=== PATIENT | female | born 1940 | race Caucasian/White ===

== ENCOUNTER → 2016-07-10 | Outpatient (CLI) | payer OTHER | LOC: BMCIMAGING 13:23 | PROVIDERS: ATTEND Family Medicine | DX: S92.515D Nondisplaced fracture of proximal phalanx of left lesser toe(s), subsequent encounter for fracture with routine healing (principal) ==

== ENCOUNTER 2017-01-17 08:07 | Day surgery (SDC) | payer OTHER ==
[2017-01-17] MEDS ORDERED: LR 1,000 ML IV ONE (08:25)
[2017-01-17] MEDS ORDERED: BUPIVACAINE 0.5% 30 ML SDV ONE (08:38)
--- NOTE | 2017-01-17 08:56 | PDANEPAE ---
ANE History of Present Illness 76 yo for Jan MERCHANT ANE Past Medical History - Cardiovascular History Hx Hypertension: No Hx Arrhythmias: No Hx Chest Pain: No Hx Coronary Artery / Peripheral Vascular Disease: No Hx CHF / Valvular Disease: No Hx Palpitations: No - Pulmonary History Hx Asthma/Reactive Airway Disease: Yes Hx Recent Upper Respiratory Infection: No Hx Oxygen in Use at Home: No Hx Sleep Apnea: No Sleep Apnea Screening Result - Last Documented: Negative Pulmonary History Comment: astma after bronchitis - Neurologic History Hx Cerebrovascular Accident: No Hx Seizures: No Hx Dementia: No - Endocrine History Hx Diabetes: No - Renal History Hx Renal Disorders: Yes Renal History Comment: kidney infection - Liver History Hx Hepatic Disorders: Yes - Neurological & Psychiatric Hx Hx Neurological and Psychiatric Disorders: No - Cancer History Hx Cancer: Yes Cancer History Comment: basal cell on face - Congenital Disorder History Hx Congenital Disorders: No - GI History Hx Gastrointestinal Disorders: Yes Gastrointestinal History Comment: reflux - Other Health History Other Health History: none - Chronic Pain History Chronic Pain: No (lower back and hips) - Surgical History Prior Surgeries: knee surgery x 3. ovarian cystectomy on right. ANE Review of Systems Review of Systems: - Exercise capacity METS (RN): 5 METS ANE Patient History - Allergies Allergies/Adverse Reactions: azithromycin Allergy (Verified 01/10/17 11:42) cephalexin monohydrate [From Keflex] Allergy (Verified 08/26/11 01:17) - Home Medications Home medications: home medication list seen and reviewed Home Medications: TESTOSTERONE [ANDROGEL 2.5 gm] 08/26/11 [Last Taken 01/17/17 07:30] Estrogens, Conjugated 01/10/17 [Last Taken 01/17/17 07:30] Progesterone 01/10/17 [Last Taken 01/02/17] - NPO status NPO Status: no food or drink >8 hours NPO Since - Liquids (Date): 01/16/17 NPO Since - Liquids (Time): 23:59 NPO Since - Solids (Date): 01/16/17 NPO Since - Solids (Time): 22:00 - Anes Hx Anes Hx: no prior problems - Smoking Hx Smoking Status: Never smoked - Family Anes Hx Family Hx Anesthesia Complications: none ANE Labs/Vital Signs - Vital Signs Blood Pressure: 136/72 Heart Rate: 63 Respiratory Rate: 16 O2 Sat (%): 98 Height: 5 ft 4.5 in Weight: 61.235 kg ANE Physical Exam - Airway Neck exam: FROM Mallampati Score: Class 2 Mouth exam: normal dental/mouth exam - Pulmonary Pulmonary: no respiratory distress - Cardiovascular Cardiovascular: regular rate and rhythym - ASA Status ASA Status: II ANE Anesthesia Plan Anesthesia Plan: general endotracheal anesthesia
[2017-01-17] MEDS ORDERED: MIDAZOLAM 2 MG/2 ML VIAL IVP ONE (08:59)
--- NOTE | 2017-01-17 08:59 | PDHPUP ---
History & Physical Update H&P update statement: This history and physical update is based on an assessment of the patient which was completed after admission or registration (within 24 hours), but prior to the surgery/procedure. H&P update: H&P reviewed & patient examined, no change in patient's condition since H&P completed
[2017-01-17] MEDS ORDERED: CLINDAMYCIN 900 MG/DEXTROSE 50 ML IV ONE (09:00)
[2017-01-17] MEDS ORDERED: REMIFENTANIL HCL 1 MG VIAL ONE (09:10)
[2017-01-17] MEDS ORDERED: PROPOFOL/EMULSION 500 MG/50 ML BOTTLE IV ONE (09:11)
[2017-01-17] MEDS ORDERED: fentaNYL 100 MCG/2 ML INJ ONE ×2 (09:11)
[2017-01-17] MEDS ORDERED: ROCURONIUM 100 MG/10 ML VIAL ONE (09:14)
[2017-01-17] MEDS ORDERED: LIDOCAINE 2% 100 MG/5 ML SYR ONE (09:15)
[2017-01-17] MEDS ORDERED: SUGAMMADEX SODIUM 200 MG/2 ML VIAL IVP ONE (10:35)
[2017-01-17] MEDS ORDERED: ONDANSETRON 4 MG/2 ML VIAL IVP PRN (10:44)
[2017-01-17] MEDS ORDERED: fentaNYL 100 MCG/2 ML INJ IVP PRN (10:44)
[2017-01-17] MEDS ORDERED: NALOXONE HCL 0.4 MG/ML INJ IVP PRN (10:44)
--- NOTE | 2017-01-17 10:49 | POSTOPPROG ---
Post Op Note Date of Operation: 01/17/17 Surgeon: Myles Weber Senior Policy Advisor: Dr. Olmedo Anesthesiologist: Dr. Philip Anesthesia: GET(General Endotracheal) Pre-op Diagnosis: RIH, Ventral hernia Post-op Diagnosis: same Procedure: DV RIHR, lap VHR Inf/Abcess present in the surg proc area at time of surgery?: No EBL: Minimal
[2017-01-17 11:44] VITALS: PULSE 62; TEMP 97.7
--- NOTE | 2017-01-17 11:52 | POSTANESTH ---
Post Anesthetic Evaluation Cardiovascular Status: Normal, Stable Respiratory Status: Normal, Stable Level of Consciousness/Mental Status: Can Participate in Eval Pain Control: Adequate, Prn Tx Ordered Nausea/Vomiting Control: Adequate, Prn Tx Ordered
[2017-01-17 11:56] VITALS: BP 151/66; RESP 17; O2SAT 97
--- NOTE | 2017-01-17 12:03 | GOP ---
[f rep st] OPERATIVE REPORT DATE OF OPERATION: 01/17/2017 SURGEON: Preston Weber MD ASSOCIATE PROFESSOR OF ARCHAEOLOGY: Dr. Pettit, whose presence was requested by me and medically necessary for the safe and timely completion of this case. ANESTHESIA: General endotracheal anesthesia, ANESTHESIOLOGIST: Dr. Philip. PREOPERATIVE DIAGNOSIS: 1. Right inguinal hernia. 2. Right abdominal wall ventral hernia. POSTOPERATIVE DIAGNOSIS: 1. Right inguinal hernia. 2. Right abdominal wall ventral hernia. PROCEDURE PERFORMED: Robotic repair of right inguinal hernia, and laparoscopic- assisted ventral hernia repair. FINDINGS: Patient had a moderate indirect hernia with a small femoral hernia on the right. She had a small ventral defect in the right midabdomen. ESTIMATED BLOOD LOSS: 20 cc. INDICATIONS: 76-year-old female with a history of right groin bulge and discomfort. She had a small bulge in the right midabdominal area as well. Risks and benefits of the procedure discussed with the patient and her family. Their questions were answered, and they wished to proceed. DESCRIPTION OF PROCEDURE: The patient was in the supine position. After the induction of adequate general endotracheal anesthesia, the patient was prepped and draped in standard surgical fashion. 0.5% Marcaine was injected throughout the infraumbilical area, and an 8 mm incision was made. The abdominal wall was elevated and a Veress needle was inserted. After noting proper pressures, the abdomen was insufflated with carbon dioxide. An 8 mm trocar was passed and the camera followed. There was no apparent damage from trocar placement. The abdomen was inspected and the right inguinal hernia was identified. No left inguinal hernia was identified. There was a small defect on the right abdominal wall just lateral to the umbilicus. There was no current entrapment of abdominal contents. Therefore, decision was made to place the 8 mm port in the same area. Another 8 mm port was placed in the left midabdominal wall. These were both placed under direct vision after injecting 0.5% Marcaine for local anesthesia. The inguinal hernia was addressed first. The peritoneum was incised sharply and bluntly taken down over the right inguinal area. The hernia sac was reduced and dissection was completed exposing the epigastrics and round ligament. Howard ligament was easily identified and space cleared for the mesh. A right-sided anatomical ProGrip mesh was placed. It was oriented correctly and seen to cover the direct, indirect in several spaces well. The peritoneum was then closed over the mesh using a 3-0 V-Loc in a running fashion. This area was infected. No other lesions identified. The ventral defect was assessed. The right-sided midabdominal trocar was removed. Endo Close device was used to place a tcescz-bp-exxun suture around the defect itself. This resulted in excellent closure of the hernia. No other lesions were identified. The remaining trocars were withdrawn under direct vision. The pneumoperitoneum was allowed to escape. Wounds were thoroughly irrigated and the skin at all sites was closed with 4-0 Monocryl in a subcuticular stitch. Wounds were dressed with Dermabond. Patient was then extubated and taken to PACU in stable condition. COMPLICATIONS: None. DRAINS: None. Copy requested to: Dr. Pettit /[id number]/MODL MTDD
== END 2017-01-17 12:17 | disposition home or self-care (01) ==
LOC: FSGY 08:07
PROVIDERS: ATTEND Surgery
DX: K40.90 Unilateral inguinal hernia, without obstruction or gangrene, not specified as recurrent (principal); K43.9 Ventral hernia without obstruction or gangrene; J45.909 Unspecified asthma, uncomplicated
CPT/HCPCS: C1781; J2001; J2250; J2704; J3010

== ENCOUNTER → 2017-05-11 | Outpatient (CLI) | payer OTHER | LOC: BMCIMAGING 10:45 | PROVIDERS: ATTEND Physician Assistant | DX: M51.36 Other intervertebral disc degeneration, lumbar region (principal); M89.38 Hypertrophy of bone, other site; M43.16 Spondylolisthesis, lumbar region ==

== ENCOUNTER 2017-12-15 02:50 | Observation (INO) | payer OTHER ==
[2017-12-15] MEDS ORDERED: NS 500 ML IV ONE (02:58)
--- NOTE | 2017-12-15 02:59 | EDPHY ---
H & P Stated Complaint: chest pressure, tingling, cough, SOB Time Seen by Provider: 12/15/17 02:58 HPI/ROS: HPI CHIEF COMPLAINT: Numbness and tingling, chest pressure, shortness of breath HISTORY OF PRESENT ILLNESS: 77-year-old female, presents emergency room by private vehicle at 3 o'clock in the morning for chest pressure, shortness of breath and numbness and tingling. Patient states that she woke up around 2:30 a.m. From sleep. She is unsure exactly what she woke up but felt tingling in her arms. Noticed that she had some chest pressure, or squeezing sensation in her chest additionally has felt short of breath. She states the tingling is mainly in her arms. Denies fever. Denies pleuritic pain. Denies headache, denies focal weakness. Main complaint numbness and tingling, shortness of breath and chest pressure. Past Medical History: Denies cardiac history except mitral valve prolapse, osteoarthritis Past Surgical History: Tonsillectomy Social History: Denies drugs alcohol tobacco. Family History: Noncontributory ROS REVIEW OF SYSTEMS: 10 Systems were reviewed and negative with the exception of the elements mentioned in the history of present illness. Exam Constitutional nontoxic, triage nursing summary reviewed, vital signs reviewed , awake/alert. Eyes normal conjunctivae and sclera, EOMI, PERRLA. HENT normal inspection, atraumatic, moist mucus membranes, no epistaxis, neck supple/ no meningismus, no raccoon eyes. Respiratory clear to auscultation bilaterally, normal breath sounds, no respiratory distress, no wheezing. Cardiovascular rate normal, regular rhythm, no murmur, no edema, distal pulses normal. Gastrointestinal soft, non-tender, no rebound, no guarding, normal bowel sounds, no distension, no pulsatile mass. Genitourinary no CVA tenderness. Musculoskeletal no midline vertebral tenderness, full range of motion, no calf swelling, no tenderness of extremities, no meningismus, good pulses, neurovascularly intact. Skin pink, warm, & dry, no rash, skin atraumatic. Neurologic awake, alert and oriented x 3, AAOx3, moves all 4 extremities equally, motor intact, sensory intact, CN II-XII intact, normal cerebellar, normal vision, normal speech. Psychiatric normal mood/affect. Heme/Lymph/Immune no lymphadenopathy. 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 Impression time of EKG 3:06 a.m., sinus rhythm rate of 65 Q-waves noted V1 V2 V3. No ST elevation. No significant ST depression. ED x-ray chest one view negative for acute cardiopulmonary disease. [id number]: Patient re-evaluated resting. Still complains of some mild chest discomfort. Given her age, and pressure in her chest should be admitted for further cardiac evaluation and rule out. Noted troponin negative here in emergency room as well as negative D-dimer. Chest x-ray shows no evidence of acute cardiopulmonary disease. Unclear etiology of chest pressure. 2 doses of nitroglycerin were given. Additionally she refused the aspirin. Spoke with the hospitalist service Dr. Patton agrees to admit. HEART Score for Major Cardiac Events from [email or web address] on 12/15/2017 All calculations should be rechecked by clinician prior to use RESULT SUMMARY: 5 points Moderate Score (4-6 points) Risk of MACE of 12-16.6%. INPUTS: History > 1 = Moderately suspicious EKG > 1 = Non-specific repolarization disturbance Age > 2 = 65 Risk factors > 1 = 1-2 risk factors Initial troponin > 0 = normal limit Source: Patient - Personal History Current Tetanus/Diphtheria Vaccine: Yes - Medical/Surgical History Hx Asthma: No Hx Chronic Respiratory Disease: Yes Hx Diabetes: No Hx Cardiac Disease: Yes Hx Renal Disease: No Hx Cirrhosis: No Hx Alcoholism: No Hx HIV/AIDS: No Hx Splenectomy or Spleen Trauma: No Other PMH: hernia sx, bronchitis, hypoglycemia, mitral valve prolapse - Social History Smoking Status: Never smoked Constitutional: Initial Vital Signs Temperature (C) 36.5 C 12/15/17 02:52 Heart Rate 71 12/15/17 02:52 Respiratory Rate 18 12/15/17 02:52 Blood Pressure 169/84 H 12/15/17 02:52 O2 Sat (%) 97 12/15/17 02:52 O2 Delivery Mode Room Air Allergies/Adverse Reactions: cephalexin monohydrate [From Keflex] Allergy (Verified 12/15/17 02:55) Rash erythromycin base Allergy (Verified 12/15/17 02:55) Swelling/neck,face,throat Home Medications: Medication Instructions Recorded Aspirin [Aspirin 81mg (*)] 81 mg PO DAILY 11/29/17 Multivitamins [Multivitamin (*)] 1 each PO DAILY 11/29/17 Niacin [Niacin 500 mg (*)] 500 mg PO HS 11/29/17 Vitamin B Complex [Vitamin B 1 each PO DAILY 11/29/17 Complex (OTC)] Medical Decision Making - Data Points Laboratory Results: Laboratory Results 12/15/17 03:22 12/15/17 03:22 Medications Given: Discontinued Medications Aspirin Buffered (Aspirin Ec) 325 mg PO EDNOW ONE Stop: 12/15/17 03:07 Last Admin: 12/15/17 03:40 Dose: Not Given Sodium Chloride (Ns) 500 mls @ 1,000 mls/hr IV EDNOW ONE PRN Reason: Protocol Stop: 12/15/17 03:27 Last Admin: 12/15/17 03:31 Dose: 500 mls Nitroglycerin (Nitrostat) 0.4 mg SL EDNOW ONE Stop: 12/15/17 03:07 Last Admin: 12/15/17 03:40 Dose: 0.4 mg Potassium Chloride (Klor-Con) 10 meq PO ONCE ONE Stop: 12/15/17 12:41 Last Admin: 12/15/17 13:14 Dose: 10 meq Point of Care Test Results: Chemistry 12/15/17 03:32 POC Troponin I 0.00 ng/mL ng/mL (0.00-0.08) Departure - Departure Disposition: [facility] Inpatient Acute Clinical Impression: Chest pain Qualifiers: Chest pain type: unspecified Qualified Code(s): R07.9 - Chest pain, unspecified Condition: Good
[2017-12-15] MEDS ORDERED: ASPIRIN EC 325 MG TAB PO ONE (03:06)
[2017-12-15] MEDS: NITROGLYCERIN 0.4 MG BTL SL ONE ×2 (03:31→03:40)
[2017-12-15 03:35] LABS: PLATELET COUNT 203 10^3/uL (150-400)
[2017-12-15 03:44] LABS: INR 1.07 (0.83-1.16); PROTIME(PATIENT) 14.1 SEC (12.0-15.0)
[2017-12-15] MEDS ORDERED: ACETAMINOPHEN 325 MG TAB PO PRN (04:50)
[2017-12-15] MEDS ORDERED: ONDANSETRON 4 MG/2 ML VIAL IVP PRN (04:50)
--- NOTE | 2017-12-15 07:50 | GHP ---
DATE OF ADMISSION: 12/15/2017 SOURCE: Patient provides history, appears reliable. EMR was reviewed and case discussed with ED pro vider. CHIEF COMPLAINT: Chest tightness, shortness of breath, numbness and tingling down both arms. HISTORY OF PRESENT ILLNESS: Very pleasant 77-year-old female with past medical history significant f or hyperlipidemia, asthma, degenerative joint disease of the knee, who presents to the emergency depa rtment today with complaints of waking up with chest tightness, right greater than left; shortness of breath; numbness and tingling down both arms, that started approximately 30 minutes before she arriv ed to the ED. The patient reports that she has been under a significant amount of stress recently. Her daughter is ill and she just recently had a break-up with her boyfriend. In addition, she is heidi eduled for total knee arthroplasty tomorrow with Dr. Thomas. The patient denies any recent illnesses . She does report a dry, persistent cough that just started since she woke up. She denies any fever s, chills. No nasal discharge. No sore throat. No wheezing. No nausea or vomiting. The patient r eports that during this episode, she felt like she was a little bit flushed and she had the numbness and tingling sensation all over her body, but particularly in her arms bilaterally. She denies any f ocal weakness or deficits. No acute changes in vision. Patient denies any previous history of chest pressure or discomfort. She reports that at baseline, she is generally healthy and has not had any issues with chest discomfort or shortness of breath recently. She has never had a stress test. [facility] er with history of OR at an elderly age of 88. No family members with history of early cardiac . REVIEW OF SYSTEMS: Ten-point review of systems negative except as noted above. ALLERGIES: Doxycycline and Keflex and wasp venom. HOME MEDICATIONS: As per EMR: Vitamin B complex 1 tab p.o. daily; niacin 500 mg p.o. at h.s.; multi vitamin p.o. daily; herbal supplement including Krill oil, calcium, magnesium, CoQ-10 and acetylcyste ine; mushrooms; systems architect's-broom; daily probiotic; estradiol cream topically; testosterone topically; progesterone topically; and aspirin 81 mg p.o. daily. PAST MEDICAL HISTORY: Significant for osteoarthritis, degenerative joint disease, asthma, hyperlipid emia. PAST SURGICAL HISTORY: Significant for tonsillectomy, adenoidectomy, ventral hernia repair. The pat ietracy has had 3 arthroscopic surgeries on the left knee, appendectomy completed at the same time as ov prince cystectomy, while patient reports she was in [place]. FAMILY HISTORY: Significant for immunodeficiency. Father with CAD, OR in his 90s, CVA in his 80s, d iabetes type 2, hypertension. Mother with degenerative joint disease, asthma, dementia. Paternal au nt with brain cancer. Paternal grandmother with rheumatoid arthritis, diabetes type 2. SOCIAL HISTORY: Patient is retired. She is , currently living alone. 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 She does not smoke, drink or utilize any illicit drugs, no marijuana. COR STATUS: Limited. Patient does not want any compressions, but she is amenable to all other resus citative efforts including intubation. PHYSICAL EXAMINATION: VITAL SIGNS: Upon arrival to the ED, blood pressure 169/84, heart rate 71, re spiratory rate 18, O2 sat is 97% on room air, temperature 36.5. Blood pressure is 118/58, heart rate 77, respiratory rate 16, O2 saturation is 96% on room air, tempe rature 36.3. GENERAL: Pleasant, elderly, frail-appearing female who is lying quietly in bed, fatigu ed. She is in no acute distress. HEAD: Normocephalic, atraumatic. EYES: Extraocular muscles are grossly intact. Pupils equal, round and symmetric. No scleral icterus, conjunctival injection. ENT : Mucous membranes appear slightly dry. No nasal discharge. NECK: Supple. Trachea midline. CV: Regular rate and rhythm. There is a 2/6 systolic murmur on the left upper sternal border. RESPIRAT ORY: Lungs are clear to auscultation bilaterally. No wheezes, rales or rhonchi appreciated. Patien t does have intermittent dry cough during the interview. ABDOMEN: Positive bowel sounds. Soft, non tender to palpation. No rebound, guarding or masses appreciated. : No suprapubic tenderness to p alpation. No Salter catheter in place. EXTREMITIES: No cyanosis, clubbing or edema appreciated. 2+ pedal pulses. NEURO: Grossly nonfocal. No facial drooping. MUSCULOSKELETAL: Moves all extremitie s. Strength, upper and lower extremities, 4/5 to 5/5. PSYCH: Patient is a bit anxious, but she is cooperative and pleasant. Thought process, content and questions are all appropriate. LABORATORY STUDIES: WBC 5.36, H and H are 13.7 and 40.1, MCV of 88.7, platelet count is 203, no band s. PT is 14.1, INR is 1.07, PTT is 35.2. D-dimer is negative. Sodium 137, potassium 3.7, chloride 100, CO2 is 29, anion gap 8, BUN 21, creatinine 0.7, GFR greater than 60, glucose 95, calcium 7.5, ma gnesium 2.3, total bilirubin 0.7, conjugated 0.0, ALT is 40, AST is 33, alkaline phosphatase 54. Tro ponin POC 0.00, repeat troponin is pending. BTNP is 109. Total protein 7.0, albumin 4.3, lipase 47. Chest x-ray: Image reviewed myself, report is still pending, showing some mildly hyperexpanded lungs with few granulomas, nothing acute. No consolidations, no effusions. EKG reviewed myself showing normal sinus rhythm in the 60s. T-wave inversion V1, V2. No acute ST el evations or depressions. Poor R-wave progression. QTc 440. Q-waves in anterior leads. ASSESSMENT AND PLAN: A 77-year-old female with history of hyperlipidemia, degenerative joint disease and multiple increased stressors who presents to the emergency department today with complaints of c hest tightness, right greater than left; shortness of breath; and bilateral arm numbness, tingling. 1. Chest tightness. Differential diagnosis including less likely acute coronary syndrome versus mor e likely anxiety or panic disorder and/or component of asthma. Patient's lungs sound clear at this t josue, but she is complaining of a cough. She does have multiple increased stressors at home, but she reports this was slightly different in that she felt short of breath and she was not hyperventilating , but otherwise, the numbness/tingling is similar to previous episodes. Patient's initial evaluation , EKG and troponin are nondiagnostic. Repeated troponin is still pending, will monitor closely. Dis cussed options for further evaluation with stress testing and patient adamantly declines any form of chemical stress testing, but she would be amenable to doing a treadmill. She reports that she recent ly had steroid injections and she would be able to complete the treadmill stress testing despite her degenerative joint disease and she would prefer this option. Will monitor for repeat troponin. If n egative, will plan to proceed with stress testing in light of patient's age, hyperlipidemia, family h istory and anticipated total knee arthroplasty tomorrow. Her D-dimer was negative and she is not cli nically consistent with a pulmonary embolism. 2. Shortness of breath, possibly related to anxiety versus asthma exacerbation, most likely. Patien t currently without any wheezing on exam. She has previously been on steroids and inhalers and she r eports these do not help with her symptoms. She has been reporting an acute dry cough that started t criss. She does not take any [id number] antihistamines. Her lung exam appears clear. 3. Hyperlipidemia. Patient is on niacin. Check a lipid panel this morning. 4. Degenerative joint disease. Patient with anticipated total knee arthroplasty scheduled for lj contreras with Dr. Thomas. Cardiac evaluation as noted above. 5. Fluid, electrolyte, nutrition: Patient currently nothing by mouth. She has received intravenous fluids in the emergency department. Will hold off on further intravenous supplementation at this ti me. Anticipate that patient's stress should return negative or low risk and will advance diet pendin g results of the treadmill stress testing. 6. Prophylaxis: Sequential compression devices, hold anticoagulation. Patient declined aspirin in the emergency department due to her upcoming surgery. 7. COR status is limited. Patient does not want any compressions, but amenable to all other resusci tative efforts. DISPOSITION: Patient admitted to observation status on PCU for close cardiac monitoring and further cardiac eval as noted above. /[id number]/MODL
--- NOTE | 2017-12-15 10:12 | PDDCSUM ---
Discharge Summary Discharge Summary: DISCHARGE DIAGNOSES: * chest pain at rest, ruled out myocardial infarction * normal exercise treadmill stress test at target heart rate * osteoarthritis with planned total knee replacement tomorrow; from Internal Medicine perspective no further assessments or interventions are necessary before proceeding safely with surgery tomorrow PROCEDURES: Exercise treadmill stress test HOSPITAL COURSE SUMMARY: This patient presented to the hospital with complaint of chest discomfort that woke her from sleep. She tells me that she has chronically some pain in her central anterior chest that comes and goes with anxiety episodes or anxious thoughts. I am not at all able to get her to describe to me how long these episodes last but she says that she can make them go away if she can think of less anxious thoughts. Last night the patient was awakened by a pressure like pain in the central chest similar to her ongoing episodes though this episode was perhaps more painful and was associated with dyspnea and a sense of tingling in both arms down the length of each arm into the fingers. She believes that this is caused by combination of valve prolapse and anxiety. She is more stressed at this time because of some problems her daughter is having and because of a knee replacement surgery which is scheduled for tomorrow. The symptoms are at this time completely resolved issues here in the hospital. She has ruled out for myocardial infarction. There is no sign of, hemodynamic instability, or arrhythmia beyond a few PVCs. She has had a treadmill stress test which is normal at target heart rate, with good exercise tolerance for age and normal blood pressure and pulse responses and recovery to exercise. There is no sign of any other vascular, cardiac, or pulmonary cause of her symptoms. At this point is felt that she is stable for discharge to home. Is recommended that she follow up with her primary care physician for these ongoing chest pain episodes as well as her ongoing anxiety symptoms. Based on our evaluation here it is recommended that she may proceed safely with her knee replacement surgery tomorrow. PENDING TEST RESULTS: None MEDICATION CHANGES: None FOLLOW-UP PLAN: With her primary care physician within 1 week She will proceed with her planned knee surgery tomorrow here with Dr. Thomas. I have reviewed with the anesthesia team as above. Greater than 35 minutes bedside and care coordination time today
--- NOTE | 2017-12-15 10:31 | CPR ---
DATE OF PROCEDURE: 12/15/2017 PROCEDURE: Treadmill stress test. REASON FOR TEST: 1. Chest discomfort. 2. Planned knee surgery. Resting EKG shows a regular sinus rhythm with a ventricular rate of 67. She has anterior late R-wave progression. No ischemic changes noted. Resting blood pressure 140/70. STRESS PORTION: She was exercised according to the [facility] protocol. She exercised for a total of 6 minutes and 3 seconds. She was unable to go into the 3rd stage due to knee pain. Maximal heart rate 122, maximal blood pressure 180/72. There were no EKG changes. Maxi mal MET level 4.6. She remained free of chest pain, shortness of breath, or dizziness during the str ess test. Her only complaint was knee pain into the 3rd stage. RECOVERY: She did spontaneously recover within 1 minute. Resting recovery blood pressure 160/80, re sting heart rate 75. At this time, she currently is stable to return to her room. This is a normal treadmill stress test. /[id number]/MODL
[2017-12-15 12:32] VITALS: BP 101/54
[2017-12-15] MEDS ORDERED: POTASSIUM CL 10 MEQ TAB PO ONE (12:40)
--- NOTE | 2017-12-15 14:15 | ASMTCASEMG ---
Living Arrangements What is your living Answers: With Spouse arrangement? Who do you live with? Type Of Residence What kind of residence do Answers: House you live in? Discharge Plan Comments Coordination Status Comments Notes: Pts case discussed in tx rounds. Pt is a 77 y/o female admitted for chest pain. Pt has a hx of hyperlipidemia, asthma and degenerative joint disease of the knee. Pt will have a stress test during this hospitalization. No therapies have been ordered at this time. Pt will most likely d/c independent when medically stable. CM available for changes. Plan: Independent Date Signed: 12/15/2017 01:53 PM Electronically Signed By:ERIC Parnell
--- NOTE | 2017-12-19 05:47 | CPEKG ---
Test Reason : OPEN Blood Pressure : / mmHG Vent. Rate : 065 BPM Atrial Rate : 066 BPM P-R Int : 178 ms QRS Dur : 083 ms QT Int : 423 ms P-R-T Axes : 025 042 056 degrees QTc Int : 440 ms Sinus rhythm Probable anterior infarct, old Confirmed by Marko Johnson ([id number]) on 12/19/2017 5:47:00 AM Referred By: Confirmed By:Marko Johnson
== END 2017-12-15 16:00 | disposition home or self-care (01) ==
LOC: F2W 05:00
PROVIDERS: ADMIT Family Medicine; ATTEND Family Medicine
DX: R07.9 Chest pain, unspecified (principal); M17.10 Unilateral primary osteoarthritis, unspecified knee; E78.5 Hyperlipidemia, unspecified
CPT/HCPCS: 71045; 93005; 93017; 99285; G0378; 84484-PO

== ENCOUNTER 2017-12-16 05:59 | Observation (INO) | payer OTHER ==
[2017-12-16] MEDS ORDERED: VANCOMYCIN 750 MG in D5W 150 ML IV ONE (06:00)
[2017-12-16] MEDS ORDERED: VANCOMYCIN PHARMACY TO DOSE MISC ONE (06:00)
[2017-12-16] MEDS ORDERED: ROPIVACAINE 0.2% 80 MG, EPINEPHrine 0.2 MG, KETOROLAC TROMETHAMINE 30 MG, morphINE 10 M... IU ONE (06:00)
[2017-12-16] MEDS ORDERED: TRANEXAMIC ACID 1,000 MG in NS 100 ML IV ONE (06:00)
[2017-12-16] MEDS ORDERED: FAMOTIDINE 20 MG TAB PO ONE (06:06)
[2017-12-16] MEDS ORDERED: ACETAMINOPHEN 325 MG TAB PO ONE (06:06)
[2017-12-16] MEDS ORDERED: LR 1,000 ML IV ONE (06:09)
[2017-12-16] MEDS ORDERED: LIDOCAINE 1% 2 ML INJ ID PRN (06:09)
--- NOTE | 2017-12-16 06:33 | PDHPUP ---
History & Physical Update H&P update statement: This history and physical update is based on an assessment of the patient which was completed after admission or registration (within 24 hours), but prior to the surgery/procedure. H&P update: no change in patient's condition since H&P completed
--- NOTE | 2017-12-16 06:33 | PDIAF ---
- Diagnosis Diagnosis: right knee djd Code Status: Full Code - Medication Management Discharge Medications: Medications to Continue on Transfer Aspirin [Aspirin 81mg (*)] 81 mg PO DAILY 11/29/17 [Last Taken 12/09/17] Multivitamins [Multivitamin (*)] 1 each PO DAILY 11/29/17 [Last Taken 12/09/17] Niacin [Niacin 500 mg (*)] 500 mg PO HS 11/29/17 [Last Taken 12/09/17] Vitamin B Complex [Vitamin B Complex (OTC)] 1 each PO DAILY 11/29/17 [Last Taken 12/09/17] Discharge Medications: Refer to the Discharge Home Medication list for PRN reason. - Orders Services needed: Physical Therapy Diet Recommendation: no restrictions on diet Diet Texture: Regular Texture Diet Additional Instructions: TOTAL JOINT ARTHROPLASTY DISCHARGE INSTRUCTIONS 1. Your surgeon follows the [facility] protocol for reducing your risk of DVT (blood clots) following surgery. Medication will be ordered to prevent blood clots. A sudden increase in calf pain and/or swelling could indicate a blood clot in your leg. If this occurs, please call your surgeon or his/her animal assistant. An ultrasound of the leg may be necessary to diagnose a blood clot. If you have conditions that make you a higher risk for blood clots, your surgeon may use more aggressive ways to prevent them. Notify your surgeon if you think you are a high risk for blood clots. 2. Wear your white surgical stockings (AVE hose) for 2 weeks. This decreases your swelling and may help prevent blood clots. It is ok to remove AVE hose at night time to give your legs a break. 3. Swelling and bruising in the surgical leg is common. If you feel that it is excessive, please notify your surgeon. 4. Elevate your surgical leg with the ankle above the hip several times every day. Please keep the leg straight when you elevate by putting pillows under your foot. Do not put pillows under your knee. This will make being able to fully straighten more difficult. This is uncomfortable, but try to do it as much as possible. 5. For total knee replacements use compressive wrap on your knee for 3-5 days after surgery, then you can discontinue it. 6. Use a walker or crutches for 1-2 weeks. Progress your weight-bearing as tolerated. You may start to use a cane when you feel stable and safe. 7. You will receive physical therapy instructions in the hospital. Continue those exercises at home. There are additional exercises in the total joint booklet you were given before surgery. Outpatient physical therapy will begin 7- 10 days after surgery. Please schedule this in advance. 8. Use ice on your knee at least 3-5 times every day for 30 minutes. This helps reduce pain and swelling. Also use it at night before falling asleep. 9. Leave your surgical dressing in place for 2 weeks. Your dressing is water resistant, but not waterproof. Cover it with Saran Wrap or Wljhn-z-Agqm before showering. You may shower as soon as you feel safe entering a shower. If you notice bleeding from your incision 2 or 3 days after surgery, please notify your surgeon. 10. Due to narcotics, decreased activity and altered diet, most patients experience constipation after surgery. Use yoog-tcg-wfauwew stool softeners while you are on narcotics. 11. You may drive a car when you are comfortable bearing weight, have good muscular control of your leg and are off narcotics. This usually occurs 2-4 weeks after surgery, depending on which leg was operated on. 12. If there are questions not addressed here, please refer the [facility] book given for more information. If you still have questions, please contact your surgeon s office. 13. If you have a life-threatening emergency, please call 911 and go to the emergency room immediately. For non-life threatening emergencies, please call your physicians office for advice before going to the emergency room. - Follow Up Care Current Providers and Referrals: Ninoska Huizar MD [Primary Care Provider] - Joe Thomas MD [Medical Doctor] -
[2017-12-16] MEDS ORDERED: THROMBIN (BOVINE) 5,000 UNIT VIAL TP ONE (06:44)
[2017-12-16] MEDS ORDERED: ceFAZolin 1 GM/5 ML SYR ONE (06:45)
[2017-12-16] MEDS ORDERED: CALCIUM CHLORIDE 1 GM/10 ML INJ ONE (06:45)
[2017-12-16] MEDS ORDERED: DEXAMETHASONE 4 MG/ML VIAL IVP PRN (06:53)
[2017-12-16] MEDS ORDERED: MIDAZOLAM 2 MG/2 ML VIAL ONE (06:53)
[2017-12-16] MEDS ORDERED: ONDANSETRON 4 MG/2 ML VIAL IVP PRN ×2 (06:53→08:16)
[2017-12-16] MEDS ORDERED: HYDROmorphONE/DILAUDID 1 MG/ML INJ IVP PRN (06:53)
[2017-12-16] MEDS ORDERED: oxyCODONE IR 5 MG TAB PO PRN (06:53)
[2017-12-16] MEDS ORDERED: ALBUTEROL 3 ML DEYVIAL IH PRN (06:53)
[2017-12-16] MEDS ORDERED: MIDAZOLAM 2 MG/2 ML VIAL IVP ONE (06:53)
[2017-12-16] MEDS ORDERED: ACETAMINOPHEN 500 MG TAB PO PRN (06:53)
[2017-12-16] MEDS ORDERED: NALOXONE HCL 0.4 MG/ML INJ IVP PRN (06:53)
--- NOTE | 2017-12-16 06:54 | PDANEPAE ---
ANE History of Present Illness Right Knee ANE Past Medical History - Cardiovascular History Hx Hypertension: No Hx Arrhythmias: No Hx Chest Pain: No Hx Coronary Artery / Peripheral Vascular Disease: No Hx CHF / Valvular Disease: No Hx Palpitations: No - Pulmonary History Hx Asthma/Reactive Airway Disease: Yes Hx Recent Upper Respiratory Infection: No Hx Oxygen in Use at Home: No Hx Sleep Apnea: No Sleep Apnea Screening Result - Last Documented: Negative Pulmonary History Comment: astma after bronchitis - Neurologic History Hx Cerebrovascular Accident: No Hx Seizures: No Hx Dementia: No - Endocrine History Hx Diabetes: No - Renal History Hx Renal Disorders: Yes Renal History Comment: kidney infection - Liver History Hx Hepatic Disorders: Yes - Neurological & Psychiatric Hx Hx Neurological and Psychiatric Disorders: No - Cancer History Hx Cancer: Yes Cancer History Comment: basal cell on face - Congenital Disorder History Hx Congenital Disorders: No - GI History Hx Gastrointestinal Disorders: Yes Gastrointestinal History Comment: reflux - Other Health History Other Health History: none - Chronic Pain History Chronic Pain: Yes (lower back and hips) - Surgical History Prior Surgeries: knee surgery x 3. ovarian cystectomy on right. ANE Review of Systems Review of Systems: - Exercise capacity METS (RN): 4 METS ANE Patient History - Allergies Allergies/Adverse Reactions: cephalexin monohydrate [From Keflex] Allergy (Verified 12/15/17 02:55) Rash erythromycin base Allergy (Verified 12/15/17 02:55) Swelling/neck,face,throat - Home Medications Home Medications: Aspirin [Aspirin 81mg (*)] 81 mg PO DAILY 11/29/17 [Last Taken 12/09/17] Multivitamins [Multivitamin (*)] 1 each PO DAILY 11/29/17 [Last Taken 12/09/17] Niacin [Niacin 500 mg (*)] 500 mg PO HS 11/29/17 [Last Taken 12/09/17] Vitamin B Complex [Vitamin B Complex (OTC)] 1 each PO DAILY 11/29/17 [Last Taken 12/09/17] - NPO status NPO Since - Liquids (Date): 12/15/17 NPO Since - Liquids (Time): 21:00 NPO Since - Solids (Date): 12/15/17 NPO Since - Solids (Time): 21:00 - Smoking Hx Smoking Status: Never smoked - Family Anes Hx Family Hx Anesthesia Complications: none ANE Labs/Vital Signs - Vital Signs Blood Pressure: 132/66 Heart Rate: 58 Respiratory Rate: 15 O2 Sat (%): 96 Height: 163.83 cm Weight: 56.699 kg ANE Physical Exam - Airway Neck exam: FROM Mallampati Score: Class 2 Mouth exam: normal dental/mouth exam - Pulmonary Pulmonary: clear to auscultation - Cardiovascular Cardiovascular: regular rate and rhythym - ASA Status ASA Status: II ANE Anesthesia Plan Anesthesia Plan: spinal Regional Anesthesia: adductor canal FNB
[2017-12-16] MEDS ORDERED: fentaNYL 100 MCG/2 ML INJ ONE ×2 (06:56→08:52)
[2017-12-16] MEDS ORDERED: DEXAMETHASONE 4 MG/ML VIAL ONE (06:57)
[2017-12-16] MEDS ORDERED: ONDANSETRON 4 MG/2 ML VIAL ONE (06:57)
[2017-12-16] MEDS ORDERED: PROPOFOL/EMULSION 500 MG/50 ML BOTTLE IV ONE (06:57)
[2017-12-16] MEDS ORDERED: DIPHENOXYLATE/ATROPINE LOMOTIL 1 TAB PO PRN (08:16)
[2017-12-16] MEDS ORDERED: TEMAZEPAM 15 MG CAP PO PRN (08:16)
[2017-12-16] MEDS ORDERED: ONDANSETRON DISINTEGRATING 4 MG TAB PO PRN (08:16)
[2017-12-16] MEDS ORDERED: MAGNESIUM HYDROXIDE 30 ML UDCUP PO PRN (08:16)
[2017-12-16] MEDS ORDERED: diphenhydrAMINE 25 MG CAP PO PRN (08:16)
[2017-12-16] MEDS ORDERED: PROMETHAZINE HCL 25 MG/ML INJ IVP PRN (08:16)
[2017-12-16] MEDS ORDERED: METOCLOPRAMIDE 10 MG/2 ML VIAL IVP PRN (08:16)
[2017-12-16] MEDS ORDERED: PROMETHAZINE HCL 25 MG SUPPR PR PRN (08:16)
[2017-12-16] MEDS ORDERED: BISACODYL 10 MG SUPP PR PRN (08:16)
[2017-12-16] MEDS ORDERED: LACTULOSE 20 GM/30 ML UDCUP PO PRN (08:16)
[2017-12-16] MEDS ORDERED: CYCLOBENZAPRINE 10 MG TAB PO PRN (08:16)
[2017-12-16] MEDS ORDERED: POLYETHYLENE GLYCOL 3350 17 GM PKT PO PRN (08:16)
--- NOTE | 2017-12-16 08:16 | POSTOPPROG ---
Post Op Note Date of Operation: 12/16/17 Surgeon: Joe Thomas Scaffold Erector: fili Anesthesiologist: daniella Anesthesia: Spinal Pre-op Diagnosis: right knee djd Post-op Diagnosis: same Indication: same Procedure: right tka Inf/Abcess present in the surg proc area at time of surgery?: No Depth: Deep Incisional (Fascial) EBL: 100-500
[2017-12-16] MEDS ORDERED: ROPIVACAINE HCL 150 MG/30 ML INJ ONE (08:26)
[2017-12-16] MEDS ORDERED: LR 1,000 ML IV SCH (08:30)
--- NOTE | 2017-12-16 08:49 | POSTANESTH ---
Post Anesthetic Evaluation Cardiovascular Status: Normal, Stable Respiratory Status: Normal, Stable Level of Consciousness/Mental Status: Can Participate in Eval, Mildly Sleepy, Arousable Pain Control: Adequate, Prn Tx Ordered Nausea/Vomiting Control: Adequate, Prn Tx Ordered Complications Possibly Related to Anesthesia: None Noted
[2017-12-16] MEDS ORDERED: HYDROmorphONE/DILAUDID 2 MG/ML INJ ONE (08:52)
[2017-12-16] MEDS: fentaNYL 100 MCG/2 ML INJ IVP PRN ×2 (08:54→08:59)
[2017-12-16] MEDS ORDERED: LORazepam 2 MG/ML INJ ONE (08:59)
[2017-12-16] MEDS ORDERED: HYDROmorphONE/DILAUDID 2 MG/ML INJ IVP PRN (09:12)
[2017-12-16] MEDS ORDERED: LORazepam 2 MG/ML INJ IVP ONE (09:15)
[2017-12-16] MEDS: SENNOSIDES/DOCUSATE SODIUM TAB PO SCH ×2 (10:07→20:12)
[2017-12-16] MEDS: ACETAMINOPHEN 325 MG TAB PO SCH ×2 (11:47→18:05)
[2017-12-16] MEDS: TRANEXAMIC ACID 650 MG TAB PO SCH ×2 (14:13→21:00)
--- NOTE | 2017-12-16 15:52 | ASMTLACE ---
ELIEZER # of Emergency department Answers: 0 visits in the last 6 months Date Signed: 12/16/2017 03:47 PM Electronically Signed By:Vickie Mauricio
--- NOTE | 2017-12-16 16:10 | ASMTCMCOM ---
CM Note CM Note Notes: Pt's chart reviewed for d/c planning. Pt is an 80 y/o female who had hip arthroplasty. PT/OT evals ordered. PT is recommending out-pt physical therapy. OT's eval is not completed as yet. The surgeon requested in-home PT/OT. Pt is asking for [facility] to come into the home for PT. Referral made. She lives independently and has no concerns that she will need additional help. Her daughter is Charity, /[phone]. CM to follow. D/C Plan: Anticipate [facility] for PT. Date Signed: 12/16/2017 04:06 PM Electronically Signed By:Vickie Mauricio
--- NOTE | 2017-12-16 16:38 | ASMTCMCOM ---
CM Note CM Note Notes: Please disreguard prior note. Pt is a 77 y/o female who had knee surgery. A referral for [facility] PT has been made. Resources for in-home non-medical services through [employer] have been given to the patient who is interested in help with grocery shopping, housekeeping and yard upkeep. CM will follow. D/C Plan: Home with [facility] for PT. Date Signed: 12/16/2017 04:38 PM Electronically Signed By:Vickie Mauricio
[2017-12-16] MEDS: ASPIRIN 325 MG TAB PO SCH (20:12)
[2017-12-16] MEDS: FAMOTIDINE 20 MG TAB PO SCH (20:13)
[2017-12-16] MEDS ORDERED: NIACIN 500 MG TAB PO SCH (21:00)
[2017-12-17] MEDS: ACETAMINOPHEN 325 MG TAB PO SCH ×3 (00:53→15:04)
[2017-12-17] MEDS: TRANEXAMIC ACID 650 MG TAB PO SCH (04:57)
--- NOTE | 2017-12-17 07:50 | PDIAF ---
- Diagnosis Diagnosis: right knee djd Code Status: Full Code - Medication Management Discharge Medications: Medications to Continue on Transfer Multivitamins [Multivitamin (*)] 1 each PO DAILY 11/29/17 [Last Taken 12/09/17] Niacin [Niacin 500 mg (*)] 500 mg PO HS 11/29/17 [Last Taken 12/09/17] Vitamin B Complex [Vitamin B Complex (OTC)] 1 each PO DAILY 11/29/17 [Last Taken 12/09/17] Aspirin [Aspirin 325 mg (*)] 325 mg PO DAILY tab 12/17/17 [Last Taken Unknown] oxyCODONE IR [Oxycodone Ir (*)] 5 - 10 mg PO Q3HRS PRN #50 tab 12/17/17 [Last Taken Unknown] Discharge Medications: Refer to the Discharge Home Medication list for PRN reason. - Orders Services needed: Physical Therapy Diet Recommendation: no restrictions on diet Diet Texture: Regular Texture Diet Additional Instructions: TOTAL JOINT ARTHROPLASTY DISCHARGE INSTRUCTIONS 1. Your surgeon follows the [facility] protocol for reducing your risk of DVT (blood clots) following surgery. Medication will be ordered to prevent blood clots. A sudden increase in calf pain and/or swelling could indicate a blood clot in your leg. If this occurs, please call your surgeon or his/her preschool assistant teacher. An ultrasound of the leg may be necessary to diagnose a blood clot. If you have conditions that make you a higher risk for blood clots, your surgeon may use more aggressive ways to prevent them. Notify your surgeon if you think you are a high risk for blood clots. 2. Wear your white surgical stockings (AVE hose) for 2 weeks. This decreases your swelling and may help prevent blood clots. It is ok to remove AVE hose at night time to give your legs a break. 3. Swelling and bruising in the surgical leg is common. If you feel that it is excessive, please notify your surgeon. 4. Elevate your surgical leg with the ankle above the hip several times every day. Please keep the leg straight when you elevate by putting pillows under your foot. Do not put pillows under your knee. This will make being able to fully straighten more difficult. This is uncomfortable, but try to do it as much as possible. 5. For total knee replacements use compressive wrap on your knee for 3-5 days after surgery, then you can discontinue it. 6. Use a walker or crutches for 1-2 weeks. Progress your weight-bearing as tolerated. You may start to use a cane when you feel stable and safe. 7. You will receive physical therapy instructions in the hospital. Continue those exercises at home. There are additional exercises in the total joint booklet you were given before surgery. Outpatient physical therapy will begin 7- 10 days after surgery. Please schedule this in advance. 8. Use ice on your knee at least 3-5 times every day for 30 minutes. This helps reduce pain and swelling. Also use it at night before falling asleep. 9. Leave your surgical dressing in place for 2 weeks. Your dressing is water resistant, but not waterproof. Cover it with Saran Wrap or Znkck-f-Fspd before showering. You may shower as soon as you feel safe entering a shower. If you notice bleeding from your incision 2 or 3 days after surgery, please notify your surgeon. 10. Due to narcotics, decreased activity and altered diet, most patients experience constipation after surgery. Use mzoc-jma-zsmbiel stool softeners while you are on narcotics. 11. You may drive a car when you are comfortable bearing weight, have good muscular control of your leg and are off narcotics. This usually occurs 2-4 weeks after surgery, depending on which leg was operated on. 12. If there are questions not addressed here, please refer the [facility] book given for more information. If you still have questions, please contact your surgeon s office. 13. If you have a life-threatening emergency, please call 911 and go to the emergency room immediately. For non-life threatening emergencies, please call your physicians office for advice before going to the emergency room. - Follow Up Care Current Providers and Referrals: Ninoska Huizar MD [Primary Care Provider] - Joe Thomas MD [Medical Doctor] -
--- NOTE | 2017-12-17 07:51 | SOAPPROG ---
SOAP Progress Note Assessment/Plan: Assessment: s/p tka Plan: stable d/c home f/u at two weeks dvt precautions reviewed 12/17/17 07:50 Subjective: mild pain no cp or sob Objective: Vital Signs Temp Pulse Resp BP Pulse Ox 36.6 C 72 16 111/63 95 12/17/17 04:00 12/17/17 04:00 12/17/17 04:00 12/17/17 04:00 12/17/17 04:00 Laboratory Results 12/17/17 04:10 12/16/17 12/17/17 12/18/17 05:59 05:59 05:59 Intake Total 1150 Output Total 1430 Balance -280 dressing intact intact pfdf ehl toes warm and pink neg homans rosalva xrays stable no fx or lucency ICD10 Worksheet Patient Problems: Problems Problem Status Onset Chest pain Acute
[2017-12-17] MEDS: ASPIRIN 325 MG TAB PO SCH (08:26)
[2017-12-17] MEDS: FAMOTIDINE 20 MG TAB PO SCH (08:27)
[2017-12-17] MEDS: SENNOSIDES/DOCUSATE SODIUM TAB PO SCH (08:30)
[2017-12-17 08:41] VITALS: BP 96/50
[2017-12-17] MEDS: oxyCODONE IR 5 MG TAB PO PRN ×2 (12:35→15:07)
--- NOTE | 2017-12-17 13:01 | PDIAF ---
- Diagnosis Diagnosis: right knee djd Code Status: Full Code - Medication Management Discharge Medications: Medications to Continue on Transfer Multivitamins [Multivitamin (*)] 1 each PO DAILY 11/29/17 [Last Taken 12/09/17] Niacin [Niacin 500 mg (*)] 500 mg PO HS 11/29/17 [Last Taken 12/09/17] Vitamin B Complex [Vitamin B Complex (OTC)] 1 each PO DAILY 11/29/17 [Last Taken 12/09/17] Aspirin [Aspirin 325 mg (*)] 325 mg PO DAILY tab 12/17/17 [Last Taken Unknown] oxyCODONE IR [Oxycodone Ir (*)] 5 - 10 mg PO Q3HRS PRN #50 tab 12/17/17 [Last Taken Unknown] Discharge Medications: Refer to the Discharge Home Medication list for PRN reason. - Orders Services needed: Home Care, Physical Therapy Home Care Face to Face: I certify that this patient was under my care and that I had the required [id number]-jt-[id number] encounter meeting the encounter requirements on the discharge day. My findings support the fact that the patient is homebound as defined in Home Care Face to Face Continued: CMS Chapter 7 Medicare Benefits Manual 30.1.1 , The condition of the patient is such that there exists a normal inability to leave home and consequently, leaving home would require a considerable and taxing effort. Diet Recommendation: no restrictions on diet Diet Texture: Regular Texture Diet Additional Instructions: TOTAL JOINT ARTHROPLASTY DISCHARGE INSTRUCTIONS 1. Your surgeon follows the [facility] protocol for reducing your risk of DVT (blood clots) following surgery. Medication will be ordered to prevent blood clots. A sudden increase in calf pain and/or swelling could indicate a blood clot in your leg. If this occurs, please call your surgeon or his/her administrative assistant data entry. An ultrasound of the leg may be necessary to diagnose a blood clot. If you have conditions that make you a higher risk for blood clots, your surgeon may use more aggressive ways to prevent them. Notify your surgeon if you think you are a high risk for blood clots. 2. Wear your white surgical stockings (AVE hose) for 2 weeks. This decreases your swelling and may help prevent blood clots. It is ok to remove AVE hose at night time to give your legs a break. 3. Swelling and bruising in the surgical leg is common. If you feel that it is excessive, please notify your surgeon. 4. Elevate your surgical leg with the ankle above the hip several times every day. Please keep the leg straight when you elevate by putting pillows under your foot. Do not put pillows under your knee. This will make being able to fully straighten more difficult. This is uncomfortable, but try to do it as much as possible. 5. For total knee replacements use compressive wrap on your knee for 3-5 days after surgery, then you can discontinue it. 6. Use a walker or crutches for 1-2 weeks. Progress your weight-bearing as tolerated. You may start to use a cane when you feel stable and safe. 7. You will receive physical therapy instructions in the hospital. Continue those exercises at home. There are additional exercises in the total joint booklet you were given before surgery. Outpatient physical therapy will begin 7- 10 days after surgery. Please schedule this in advance. 8. Use ice on your knee at least 3-5 times every day for 30 minutes. This helps reduce pain and swelling. Also use it at night before falling asleep. 9. Leave your surgical dressing in place for 2 weeks. Your dressing is water resistant, but not waterproof. Cover it with Saran Wrap or Aosox-d-Zaax before showering. You may shower as soon as you feel safe entering a shower. If you notice bleeding from your incision 2 or 3 days after surgery, please notify your surgeon. 10. Due to narcotics, decreased activity and altered diet, most patients experience constipation after surgery. Use pczr-qyf-wapxsvb stool softeners while you are on narcotics. 11. You may drive a car when you are comfortable bearing weight, have good muscular control of your leg and are off narcotics. This usually occurs 2-4 weeks after surgery, depending on which leg was operated on. 12. If there are questions not addressed here, please refer the [facility] book given for more information. If you still have questions, please contact your surgeon s office. 13. If you have a life-threatening emergency, please call 911 and go to the emergency room immediately. For non-life threatening emergencies, please call your physicians office for advice before going to the emergency room. - Follow Up Care Current Providers and Referrals: Ninoska Huizar MD [Primary Care Provider] - Joe Thomas MD [Medical Doctor] -
--- NOTE | 2017-12-17 14:13 | ASDISCHSUM ---
Discharge Information Plan Status:Home with Home Health Medically Cleared to Leave:12/17/2017 Discharge Date:12/17/2017 CM D/C Disposition:Home Health Service ADT D/C Disposition:Home Health Service Projected Discharge Date:12/17/2017 11:00 AM Transportation at D/C:Family Discharge Delay Reason: Follow-Up Date:12/17/2017 11:00 AM Discharge Slot: Final Diagnosis: Placement Information Referral Type:*Home Health Care Services Referral ID:[id number] Provider Name:[facility] Address 1:[address] Address 2: City:[place] Selection Factors: State:[place] Patient Contact Information Contact Name:PADMINI Relationship:Life Partner Address:[address] City:[place] Alternate Phone: [facility]/Zip Code:[place] [address] Email: Financial Information Financial Class:Medicare Primary Plan Desc:MEDICARE OUTPATIENT Primary Plan Number:[id number] Secondary Plan Desc:[facility] Secondary Plan Number:[id number] Assessment Information LACE ELIEZER # of Emergency department Answers: 0 visits in the last 6 months Date Signed: 12/16/2017 03:47 PM Electronically Signed By:Vickie Mauricio [facility] CM Progress Note CM Note CM Note Notes: Pt's chart reviewed for d/c planning. Pt is an 80 y/o female who had hip arthroplasty. PT/OT evals ordered. PT is recommending out-pt physical therapy. OT's eval is not completed as yet. The surgeon requested in-home PT/OT. Pt is asking for [facility] to come into the home for PT. Referral made. She lives independently and has no concerns that she will need additional help. Her daughter is Charity, /[phone]. CM to follow. D/C Plan: Anticipate [facility] for PT. Date Signed: 12/16/2017 04:06 PM Electronically Signed By:Vickie Mauricio [facility] CM Progress Note CM Note CM Note Notes: Please disreguard prior note. Pt is a 77 y/o female who had knee surgery. A referral for [facility] PT has been made. Resources for in-home non-medical services through [employer] have been given to the patient who is interested in help with grocery shopping, housekeeping and yard upkeep. CM will follow. D/C Plan: Home with [facility] for PT. Date Signed: 12/16/2017 04:38 PM Electronically Signed By:Vickie Mauricio Case Management Discharge Plan Note Case Management Discharge Discharge Order Complete? Answers: Yes Patient to Obtain Answers: via Family Medications Transportation Arranged Answers: Family/Friends Family Notified Answers: Yes Discharge Comments Notes: Pt is discharging home today with [facility] PT. D/C meds, order sent via [employer]. Daughter present. Also notified [facility]. Date Signed: 12/17/2017 02:12 PM Electronically Signed By:GISSELLE Albright Intervention Information Intervention Type:*Incorrect Registration Date of Service:12/16/2017 10:00 AM Patient Type:Inpatient Staff Member:Becky Cleaning Hours: Discipline: Severity: Comment:
--- NOTE | 2017-12-17 14:13 | ASMTDCNOTE ---
Case Management Discharge Discharge Order Complete? Answers: Yes Patient to Obtain Answers: via Family Medications Transportation Arranged Answers: Family/Friends Family Notified Answers: Yes Discharge Comments Notes: Pt is discharging home today with [facility] PT. D/C meds, order sent via [employer]. Daughter present. Also notified [facility]. Date Signed: 12/17/2017 02:12 PM Electronically Signed By:GISSELLE Albright
--- NOTE | 2017-12-20 07:09 | GOP ---
DATE OF OPERATION: SURGEON: Joe Thomas MD POLICE COMMISSIONER: Addi Otero, surgical pathologist, who was a medical necessity for the entirety of the case. PREOPERATIVE DIAGNOSIS: POSTOPERATIVE DIAGNOSIS: PROCEDURE PERFORMED: FINDINGS: SPECIMENS: To pathology, the bony cuts. 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 Clinica l and radiographic features are consistent with this. She has failed all attempts at conservative ma nagement; therefore, recommended operative intervention. I have outlined the surgical procedure, ris ks, benefits, and alternatives. She wished to proceed. Written consent was signed and placed in the patient's chart. DESCRIPTION OF PROCEDURE: The patient was identified in the preanesthesia area. The right knee bassem rly demarcated as operative site with a double marker. She was given 2 g of Ancef intravenously en r oute to the operative suite. In the OR, spinal anesthetic was placed. She was positioned in the sup ine position. Appropriate time-out procedure was carried out. Attention was turned to the right kne e and lower extremity, which were sterilely prepped and draped in usual fashion and exsanguinated. T o[place]iquet was inflated to 250 mmHg. A standard anterior midline incision was made. Thick subcutaneo us flaps were elevated followed by medial parapatellar arthrotomy. Subperiosteal elevation was akhil ed out to the mid coronal plane. Retractors were then placed. The knee demonstrated tricompartmenta l arthritis. The decision was made to proceed with total knee replacement. Two pins were then place d across the distal medial femur. The femoral reference array affixed and the femoral check point pl aced. A percutaneous incision was made over the mid tibia and 2 pins were then placed in this area, with the tibial reference array affixed. A tibial checkpoint was placed. All bony landmarks were en tered into the computer. The knee was taken through flexion-extension cycle and balanced. Using the MAKOplasty robot, resections were made for a size 2 femur, size 3 tibia, and ultimately a 3 x 9 mm p olyethylene spacer was selected. This allowed full extension, flexion to 135 degrees, with no instab ility through the flexion-extension arc. The trial components were withdrawn. The tibia was then pr ess-fit. The femur was press-fit. A 3 x 9 mm polyethylene spacer was placed, confirmed to be fully seated. Range of motion and stability profile were as above. The knee was then brought to extension . The patellae everted, cut in a freehand cutting technique. Drill holes made for a size 29 mm poly patella. Press-fit patella was then placed. The kneecap tracked centrally through the flexion-exte nsion arc. The wound was copiously irrigated. The capsule and subcutaneous tissues were injected wi th a joint cocktail of ropivacaine, morphine, Toradol, and epinephrine. The medial parapatellar arth rotomy closed using #1 Ethibond suture. The knee capsule instilled with a platelet-rich plasma solut ion. Subcutaneous tissue closed using 2-0 Monocryl and the skin closed using ZipLine closure. Steri le dressing was applied. The patient was awakened, extubated, and taken to the recovery room in good , stable condition. TOTAL TOURNIQUET TIME: 37 minutes. COMPLICATIONS: None. IMPLANTS: The Lex triathlon posterior stabilized femoral component size 2, size 3 tibial compone nt, 3 x 9 mm tibial bearing insert, and an asymmetric patella size 29 mm. DISPOSITION: To the recovery room, then the floor. She is weightbearing range of motion as constance frausto. /[id number]/MODL
--- NOTE | 2017-12-20 07:14 | GDS ---
ADMIT DIAGNOSIS: Right knee degenerative joint disease. DISCHARGE DIAGNOSIS: Right knee degenerative joint disease. PROCEDURE: Right total knee arthroplasty, MAKOplasty. OPERATIVE INDICATIONS: The patient is a 77-year-old woman with end-stage arthritis to her right knee . Clinical and radiographic features are consistent with this. She has failed all attempts at conse rvative management. I therefore recommended total knee replacement. I have outlined the surgical pr ocedure, risks, benefits, and alternatives. She wished to proceed. Written consent was signed and p laced in patient's chart. HOSPITAL COURSE: The patient was admitted to the hospital floor after uncomplicated total knee arthr oplasty. She tolerated the procedure well. She rapidly progressed with physical therapy. At the ti me of discharge, she is tolerating an oral diet. Pain is well controlled on oral medicines. She is voiding without difficulty. Dressing is clean, dry, and intact. There is no calf swelling, tenderne ss or drainage. Negative Trey's bilaterally. X-rays are stable with anatomic alignment. DISCHARGE ACTIVITY: Weightbearing, range of motion as tolerated. Keep the dressing clean, dry, and intact. May change if this becomes saturated. Seek attention for increasing redness, swelling, drai nage, or discharge. FOLLOWUP: In 2 weeks. DISCHARGE MEDICATIONS: Oxycodone 5 mg 1 p.o. q.6 hours p.r.n. pain, aspirin 325 mg p.o. daily. /[id number]/MODL
== END 2017-12-17 15:25 | disposition home health service (06) ==
LOC: INTOOBSV 05:59 → F3N 05:59
PROVIDERS: ADMIT Orthopaedic Surgery; ATTEND Orthopaedic Surgery
PROC: 0SRC0JZ Replacement of Right Knee Joint with Synthetic Substitute, Open Approach (ICD-10-PCS; principal; 2017-12-16 07:15)
DX: M17.11 Unilateral primary osteoarthritis, right knee (principal)
CPT/HCPCS: 27447; 73560; 88311; 97110; 97116; 97161; 97165; 97530; C1776; G8978; G8979; G8980; G8987; G8988; J0171; J0690; J1100; J1170; J1885; J2060; J2250; J2270; J2405; J2704; J2795; J3010; J3370

== ENCOUNTER → 2018-01-31 | Outpatient (CLI) | payer OTHER | LOC: BMCIMAGING 13:29 | PROVIDERS: ATTEND Physician Assistant | DX: Z47.1 Aftercare following joint replacement surgery (principal); Z96.651 Presence of right artificial knee joint ==

== ENCOUNTER → 2018-03-01 | Outpatient (CLI) | payer OTHER | LOC: BMCIMAGING 10:50 | PROVIDERS: ATTEND Physician Assistant | DX: Z96.651 Presence of right artificial knee joint (principal) ==

== ENCOUNTER → 2018-04-18 | Outpatient (CLI) | payer OTHER | LOC: BMCIMAGING 15:33 | PROVIDERS: ATTEND Internal Medicine | DX: J98.4 Other disorders of lung (principal) ==

== ENCOUNTER 2018-08-21 17:08 | Emergency (ER) | payer OTHER ==
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
[2018-08-21] MEDS ORDERED: IOPAMIDOL (ISOVUE-300) 100 ML BTL ONE (18:01)
[2018-08-21] MEDS ORDERED: HYDROCOD/APAP 5/325 PREPACK#6 BTL TAKEHOME ONE (18:54)
[2018-08-21 19:12] VITALS: BP 161/86
== END 2018-08-21 19:12 | disposition home or self-care (01) ==
DX: R07.2 Precordial pain (principal); V49.49XA Driver injured in collision with other motor vehicles in traffic accident, initial encounter; Y92.410 Unspecified street and highway as the place of occurrence of the external cause
CPT/HCPCS: 82435-PO; 82565-PO; 82947-PO; 84132-PO; 84295-PO; 84520-PO; 85014-ER; Q9967

== ENCOUNTER → 2018-08-22 | Outpatient (CLI) | payer OTHER | LOC: BMCIMAGING 11:14 | PROVIDERS: ATTEND Family Medicine | DX: S89.91XA Unspecified injury of right lower leg, initial encounter (principal); V49.9XXA Car occupant (driver) (passenger) injured in unspecified traffic accident, initial encounter; Z96.659 Presence of unspecified artificial knee joint ==

== ENCOUNTER → 2018-09-26 | Outpatient (CLI) | payer OTHER | LOC: FIMAGING 13:59 ==